=== PATIENT | female | born 1960 ===

== ENCOUNTER 2022-04-07 11:30 | Inpatient (IN) | payer OTHER ==
[~2022-04-07] VITALS: Ht 144.8 cm; Wt 65.8 kg
[2022-04-07] MEDS ORDERED: SIMVASTATIN20 MG PO (13:20)
[2022-04-07] MEDS ORDERED: LOSARTAN POTAS100 MG PO (13:20)
[2022-04-07] MEDS ORDERED: PLAQUENIL PO (13:21)
[2022-04-07] MEDS ORDERED: TOPROL XL100 M1 PO (13:22)
[2022-04-07] MEDS ORDERED: SULINDAC200 MG PO (13:22)
[2022-04-07] MEDS ORDERED: FOSAMAX70 MG PO (13:22)
[2022-04-07] MEDS ORDERED: PROBIOT PO (13:23)
[2022-04-07] MEDS ORDERED: VITAMIN D PO (13:23)
[2022-04-07] MEDS ORDERED: VITAMIN C PO (13:24)
[2022-04-10] MEDS ORDERED: HYDROXYCHLOROQ200 MG (10:59)
[2022-04-10] MEDS ORDERED: PROBIOTIC250 MG (11:00)
[2022-04-10] MEDS ORDERED: VITAMIN C1000 MG (11:00)
[2022-04-10] MEDS ORDERED: VITAMIN D310 MC4 (11:00)
== END 2022-04-12 10:02 | DRG 735 ==
LOC: OB/GYN 04-10 05:54 → O/R 04-10 05:54 → SURH 04-10 11:30 → OB/GYN 04-10 21:11 → SURG 04-10 21:21 → SEC-K 04-10 22:05 → O/R 04-10 22:11 → OB/GYN 04-10 22:14
PROVIDERS: ADMIT Obstetrics & Gynecology Gynecologic Oncology; ATTEND Obstetrics & Gynecology Gynecologic Oncology
PROC: 07TD0ZZ Resection of Aortic Lymphatic, Open Approach (ICD-10-PCS; 2022-04-10)
PROC: 0UT20ZZ Resection of Bilateral Ovaries, Open Approach (ICD-10-PCS; 2022-04-10)
PROC: 0UT90ZZ Resection of Uterus, Open Approach (ICD-10-PCS; 2022-04-10)
PROC: 0UT70ZZ Resection of Bilateral Fallopian Tubes, Open Approach (ICD-10-PCS; 2022-04-10)
PROC: 07TC0ZZ Resection of Pelvis Lymphatic, Open Approach (ICD-10-PCS; principal; 2022-04-10 13:45)
DX: C54.1 Malignant neoplasm of endometrium (principal); Z20.822 Contact with and (suspected) exposure to COVID-19; N72 Inflammatory disease of cervix uteri; D25.1 Intramural leiomyoma of uterus